=== PATIENT | female | born 1980 | race Caucasian/White ===

== ENCOUNTER 2016-10-30 21:45 | Emergency (ER) | payer MEDICAID ==
[2016-10-30 21:56] VITALS: BP 128/79
[2016-10-30] MEDS ORDERED: Lidocaine 1% 50 ML MDV INJECT ONE (22:00)
[2016-10-30] MEDS ORDERED: Acetaminophen/oxyCODONE 325-5 MG Tab PO ONE (22:05)
[2016-10-30] MEDS ORDERED: Sulfamethoxazole/Trimethoprim 800-160 MG Tab PO ONE (22:05)
[2016-10-30] MEDS ORDERED: cefTRIAXone 1 GM Vial IM ONE (22:05)
[2016-10-30] MEDS ORDERED: Acetaminophen/oxyCODONE 325-5 MG Tab ONE (22:13)
--- NOTE | 2016-10-30 22:13 | EDM.PDOC ---
ED HPI GENERAL MEDICAL PROBLEM - General Chief Complaint: General Stated Complaint: boil tiffany L breast Time Seen by Provider: 10/30/16 22:05 Source of Information: Reports: Patient History Limitations: Reports: No limitations - History of Present Illness INITIAL COMMENTS - FREE TEXT/NARRATIVE: PT STATES SHE DEVELOPED REDNESS AND PIMPLE ON INFERIOR LEFT BREAST 5 DAYS AGO. HAS BEEN SQUEEZING IT AND NOW LARGER AND MORE PAINFUL. DENIES FEVER, NIPPLE DISCHARGE, PAIN IN AXILLA, N/V, OR TRAUMA. Onset: gradual Onset Date: 10/25/16 Duration: Day(s): Location: Reports: chest Quality: Reports: Burning, Throbbing Severity: moderate Improves with: Reports: None Worsens with: Reports: None Associated Symptoms: Reports: no other symptoms - Related Data Allergies Allergy/AdvReac Type Severity Reaction Status Date / Time sun Allergy Rash Uncoded 10/30/16 21:48 tatoe ink Allergy Redness Uncoded 10/30/16 21:48 Home Meds: Home Meds Clobetasol [Clobetasol 0.05%] 1 applic TOP ASDIRECTED 10/30/16 [History] Nitroglycerin [Nitrostat] 0.4 mg SL Q5M PRN 10/30/16 [History] Past Medical History Respiratory History: Reports: None Musculoskeletal History: Reports: Other (see below) Other Musculoskeletal History: sholulder pain - hx of same for "years" Dermatologic History: Reports: Other (see below) Other Dermatologic History: hx of boils - on antibiotic for same now - Infectious Disease History Infectious Disease History: Reports: MRSA - Past Surgical History GI Surgical History: Reports: Hernia repair/other Female Surgical History: Reports: Breast reduction, section Social & Family History - Tobacco Use Smoking Status *Q: Current Every Day Smoker Years of Tobacco use: 20 Packs/Tins Daily: 1 Second Hand Smoke Exposure: No - Caffeine Use Caffeine Use: Reports: Coffee, Soda - Recreational Drug Use Recreational Drug Use: No ED ROS GENERAL - Review of Systems Review Of Systems: ROS reveals no pertinent complaints other than HPI. Constitutional: Reports: no symptoms HEENT: Reports: No symptoms Respiratory: Reports: No Symptoms Cardiovascular: Reports: No symptoms Endocrine: Reports: no symptoms GI/Abdominal: Reports: No symptoms : Reports: no symptoms Musculoskeletal: Reports: no symptoms Skin: Reports: no symptoms, erythema (ON LEFT BREAST) Neurological: Reports: No Symptoms Psychiatric: Reports: No symptoms Hematologic/Lymphatic: Reports: no symptoms Immunologic: Reports: no symptoms ED EXAM, GENERAL - Physical Exam Exam: See Below Exam Limited By: No limitations General Appearance: alert, WD/WN, mild distress Throat/Mouth: Normal inspection, Normal oropharynx, No airway compromise Neck: normal inspection. No: lymphadenopathy (L), lymphadenopathy (R) Respiratory/Chest: no respiratory distress, lungs clear, normal breath sounds Cardiovascular: regular rate, rhythm, no murmur Extremities: normal inspection Neurological: alert, oriented, normal cognition Psychiatric: normal affect, normal mood Skin Exam: Warm, Dry, Intact, Erythema (LEFT INFERIOR BREAST ABSCESS FORMATION) Lymphatic: no adenopathy (OF AXILLA) Course - Vital Signs Last Recorded V/S: Last Vital Signs Temp 98 F 10/30/16 21:52 Pulse 107 H 10/30/16 21:52 Resp 18 10/30/16 21:52 BP 128/79 10/30/16 21:52 Pulse Ox 97 10/30/16 21:52 - Orders/Labs/Meds Orders: Active Orders 24 hr Category Date Time Status Acetaminophen/oxyCODONE [Percocet 325-5 MG] Med 10/30/16 22:05 Once 1 tab PO ONETIME ONE Sulfamethoxazole/Trimethoprim [Septra DS] Med 10/30/16 22:05 Once 1 tab PO ONETIME ONE cefTRIAXone [Rocephin] Med 10/30/16 22:05 Once 1 gm IM ONETIME ONE - Re-Assessments/Exams Free Text/Narrative Re-Assessment/Exam: 10/30/16 22:13 PT AFEBRILE, NONTOXIC APPEARING, VSS, ROCEPHIN AND BACTRIM GIVEN. WILL F/U WITH PCP IN 2 DAYS FOR RECHECK Departure - Departure Time of Disposition: 22:14 Disposition: Home, Self-Care 01 Condition: good Clinical Impression: Abscess, Cellulitis of breast Instructions: Abscess, Cellulitis, Adult, [id number] Forms: ED Department Discharge Additional Instructions: FOLLOW UP AT [facility] IN 2 DAYS. RETURN TO ER SOONER IF SYMPTOMS CONTINUE - My Orders Last 24 Hours: My Active Orders 10/30/16 22:05 Acetaminophen/oxyCODONE [Percocet 325-5 MG] 1 tab PO ONETIME ONE Sulfamethoxazole/Trimethoprim [Septra DS] 1 tab PO ONETIME ONE cefTRIAXone [Rocephin] 1 gm IM ONETIME ONE - Assessment/Plan Last 24 Hours: My Active Orders 10/30/16 22:05 Acetaminophen/oxyCODONE [Percocet 325-5 MG] 1 tab PO ONETIME ONE Sulfamethoxazole/Trimethoprim [Septra DS] 1 tab PO ONETIME ONE cefTRIAXone [Rocephin] 1 gm IM ONETIME ONE Assessment:: ABSCESS Plan: F/U WITH PCP IN 2 DAYS
[2016-10-30] MEDS ORDERED: Lidocaine 1% 20 ML MDV ONE (22:17)
== END 2016-10-30 22:44 | disposition home or self-care (01) ==
LOC: KA.ED 21:45
DX: N61.1 Abscess of the breast and nipple (principal); F17.210 Nicotine dependence, cigarettes, uncomplicated; Z91.09 Other allergy status, other than to drugs and biological substances; Z98.890 Other specified postprocedural states
CPT/HCPCS: 96372; 99282; A9270; J0696

== ENCOUNTER 2020-04-07 00:14 | Emergency (ER) | payer BC, OTHER ==
[2020-04-07 00:29] VITALS: BP 114/71; PULSE 84
--- NOTE | 2020-04-07 00:47 | EDM.PDOC ---
ED HPI GENERAL MEDICAL PROBLEM - General Chief Complaint: General Stated Complaint: URI SYMPTOMS Time Seen by Provider: 04/07/20 00:30 Source of Information: Reports: Patient History Limitations: Reports: No Limitations - History of Present Illness INITIAL COMMENTS - FREE TEXT/NARRATIVE: 40 YO WF PRESENTS TO ER COMPLAINING OF 2 DAYS OF NASAL CONGESTION WITH NONPRODUCTIVE COUGH. PT DENIES FEVER/CHILLS, NO SHORTNESS OF BREATH OR CHEST PAIN. PT DENIES SORE THROAT, N/V/D OR ABDOMINAL PAIN. PT REPORTS SHE WORKS IN A [employer] UNIT AT WORK AND BECAME SYMPTOMATIC 2 DAYS AGO. PT REPORTS SHE WAS TO BE TESTED AT WORK THIS AM BUT HER INSISTED SHE COME TO ER [facility] FOR EVALUATION AND TREATMENT. Duration: Day(s): (2) Location: Reports: Generalized Quality: Reports: Ache Severity: Mild Improves with: Reports: None Worsens with: Reports: None Associated Symptoms: Reports: Cough, Fever/Chills. Denies: Chest Pain, cough w sputum, Headaches, Nausea/Vomiting, Rash, Shortness of Breath, Weakness - Related Data Allergies Allergy/AdvReac Type Severity Reaction Status Date / Time No Known Drug Allergies Allergy Cannot Verified 04/07/20 00:18 Remember ED ROS GENERAL - Review of Systems Review Of Systems: See Below Constitutional: Reports: Fever, Chills, Malaise HEENT: Reports: Rhinitis Respiratory: Reports: Cough Cardiovascular: Reports: No Symptoms Endocrine: Reports: No Symptoms GI/Abdominal: Reports: No Symptoms : Reports: No Symptoms Musculoskeletal: Reports: No Symptoms Skin: Reports: No Symptoms Neurological: Reports: No Symptoms Psychiatric: Reports: No Symptoms Hematologic/Lymphatic: Reports: No Symptoms Immunologic: Reports: No Symptoms ED EXAM, GENERAL - Physical Exam Exam: See Below Exam Limited By: No Limitations General Appearance: Alert, WD/WN, No Apparent Distress Nose: Clear Rhinorrhea Throat/Mouth: Normal Inspection, Normal Lips, Normal Teeth, Normal Gums, Normal Oropharynx, Normal Voice, No Airway Compromise Head: Atraumatic, Normocephalic Neck: Normal Inspection, Supple, Non-Tender, Full Range of Motion Respiratory/Chest: No Respiratory Distress, Lungs Clear, Normal Breath Sounds, No Accessory Muscle Use, Chest Non-Tender Cardiovascular: Normal Peripheral Pulses, Regular Rate, Rhythm, No Edema, No Gallop, No JVD, No Murmur, No Rub GI/Abdominal: Normal Bowel Sounds, Soft, Non-Tender, No Organomegaly, No Distention, No Abnormal Bruit, No Mass Back Exam: Normal Inspection, Full Range of Motion, NT Extremities: Normal Inspection, Normal Range of Motion, Non-Tender, Normal Capillary Refill, No Pedal Edema Neurological: Alert, Oriented, CN II-XII Intact, Normal Cognition, Normal Gait, Normal Reflexes, No Motor/Sensory Deficits Psychiatric: Normal Affect, Normal Mood Skin Exam: Warm, Dry, Intact, Normal Color, No Rash Lymphatic: No Adenopathy Course - Vital Signs Last Recorded V/S: Last Vital Signs Temp 36.0 C L 04/07/20 00:25 Pulse 84 04/07/20 00:25 Resp 24 H 04/07/20 00:25 BP 114/71 04/07/20 00:25 Pulse Ox 100 04/07/20 00:25 - Orders/Labs/Meds Orders: Active Orders 24 hr Category Date Time Status CORONAVIRUS COVID-19 JOE [MOLEC] Routine Lab 04/07/20 00:45 Ordered Departure - Departure Time of Disposition: 01:00 Disposition: Home, Self-Care 01 Condition: Good Clinical Impression: Acute viral syndrome - Discharge Information Instructions: Viral Respiratory Infection, [id number] Referrals: Marleen Moore, APPARAT[employer] LINEMAN [Primary Care Provider] - Forms: ED Department Discharge Additional Instructions: 1. DISCHARGE HOME 2. MOTRIN/TYLENOL FOR FEVER AND BODY ACHES 3. ZINC LOZENGES 4. ZYRTEC 10MG DAILY FOR COUGH/CONGESTION 5. FOLLOW UP WITH PCP FOR FURTHER EVALUATION AND TREATMENT 6. QUARANTINE UNTIL COVID TEST RESULTS ARE RELEASED 7. RETURN TO ER FOR WORSENING SYMPTOMS Sepsis Event Note (ED) - Evaluation Sepsis Screening Result: No Definite Risk - Focused Exam Vital Signs: Vital Signs Temp Pulse Resp BP Pulse Ox 04/07/20 00:25 36.0 C L 84 24 H 114/71 100 - My Orders Last 24 Hours: My Active Orders 04/07/20 00:45 CORONAVIRUS COVID-19 JOE [MOLEC] Routine - Assessment/Plan Last 24 Hours: My Active Orders 04/07/20 00:45 CORONAVIRUS COVID-19 JOE [MOLEC] Routine Assessment:: 1. ACUTE VIRAL ILLNESS Plan: 1. DISCHARGE HOME 2. MOTRIN/TYLENOL FOR FEVER AND BODY ACHES 3. ZINC LOZENGES 4. ZYRTEC 10MG DAILY FOR COUGH/CONGESTION 5. FOLLOW UP WITH PCP FOR FURTHER EVALUATION AND TREATMENT 6. QUARANTINE UNTIL COVID TEST RESULTS ARE RELEASED 7. RETURN TO ER FOR WORSENING SYMPTOMS
== END 2020-04-07 01:20 | disposition home or self-care (01) ==
LOC: MERGE 00:14 → KA.ED 00:14
DX: B34.9 Viral infection, unspecified (principal); Z20.828 Contact with and (suspected) exposure to other viral communicable diseases
CPT/HCPCS: 99282; 99283; U0002

== ENCOUNTER 2020-10-15 17:12 | Emergency (ER) | payer OTHER ==
--- NOTE | 2020-10-15 17:16 | EDM.PDOC ---
ED HPI GENERAL MEDICAL PROBLEM - General Chief Complaint: Trauma Stated Complaint: TRAUMA--FALL Time Seen by Provider: 10/15/20 17:12 Source of Information: Reports: Patient, Family - History of Present Illness INITIAL COMMENTS - FREE TEXT/NARRATIVE: Nupur, 40-year-old female, presents per pedis to the emergency department on a referral from Jatinder Pritchard provider in [place]. Yesterday, 14 October 2020, while at work, Nupur fell backwards striking her head.Coworker states there was a short period of loss of consciousness. She finished working her shift and was home by roughly 3:00 with mild headache. She has had sleepiness/drowsiness and not her usual self since then. This morning her had to awaken her x3 but she was able to get up and go to work and complete her entire shift. She has had some associated aches and pains to the musculature of the arms and legs, her back, neck in the paraspinal muscles, as well as her head. She has had intermittent headache. As well as intermittent periods of drowsiness. She had a 430 appointment at the [facility] this afternoon with Joan and was found to be in need of further evaluation and advised to seek emergency services here at the [facility] in [place]. 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: Musculoskeletal History: Reports: Other (See Below) Other Musculoskeletal History: Lupus Endocrine/Metabolic History: Reports: Obesity/BMI 30+ Dermatologic History: Reports: Other (See Below) Other Dermatologic History: hx of boils - on antibiotic for same now - Infectious Disease History Infectious Disease History: Reports: MRSA - Past Surgical History GI Surgical History: Reports: Hernia, Abdominal, Hernia Repair/Other Female Surgical History: Reports: Breast Reduction, Section, Hysterectomy Social & Family History - Family History Family Medical History: No Pertinent Family History - Caffeine Use Caffeine Use: Reports: Coffee, Soda ED ROS GENERAL - Review of Systems Review Of Systems: Comprehensive ROS is negative, except as noted in HPI. ED EXAM, GENERAL - Physical Exam Exam: See Below Free Text/Narrative:: Entire team was present and waiting for their arrival by private vehicle. Alert, oriented, with headache. Her demeanor is somewhat flat as I have met Nupur in the past. HEENT shows mild swelling in the posterior occipital region with tenderness. There is tenderness in the paraspinal muscles of the neck. Pupils are equal and right is slightly slower to respond. Auditory canals are free of any lesions or debris, negative for hemotympanum. Oral mucosa is pink and moist. All piercings are removed by herself from the ears nose and lips prior to the scan. Neck is no deformity other than mild tenderness in the musculature as well as into the shoulder margins. Thorax is clear throughout with no wheezes nor crackles. Cardiac is S1 is 2 I do not appreciate any murmur. Visualization of the shoulders posterior thorax anterior thorax and abdomen as well as flank are negative for any bruising at this time. There are some tattoos in place with no other integument irritation. She is ambulatory with no distress in her presentation to the department or ambulating for the CAT scan and back. When reassessed upon return breath sounds remain symmetrical and clear. Her pupils are more equal to response at this time. There is mild photophobia. She has a mild headache continuing rating 3. Course - Orders/Labs/Meds Orders: Active Orders 24 hr Category Date Time Status Head wo Cont [CT] Stat Exams 10/15/20 17:14 Ordered CBC WITH AUTO DIFF [HEME] Urgent Lab 10/15/20 17:14 Ordered COMPREHENSIVE METABOLIC PN,CMP [CHEM] Stat Lab 10/15/20 17:14 Ordered - Re-Assessments/Exams Free Text/Narrative Re-Assessment/Exam: 10/15/20 17:59 Pain free at time for discharge. No complaints visiting appropriately with no conversation deficit. 10/15/20 18:08 Pupils remain equal, and equally responsive. Departure - Departure Time of Disposition: 17:56 Disposition: Home, Self-Care 01 Condition: Good Clinical Impression: Fall against object, Work related injury, Concussion syndrome, Headache, Cerebellar tonsillar ectopia, Generalized muscle ache - Discharge Information *PRESCRIPTION DRUG MONITORING PROGRAM REVIEWED*: Not Applicable *COPY OF PRESCRIPTION DRUG MONITORING REPORT IN PATIENT SAHIL: Not Applicable Instructions: Post-Concussion Syndrome, Musculoskeletal Pain Referrals: Marleen Moore NP [Primary Care Provider] - Krystal Monson NP [Nurse Practitioner] - Forms: ED Department Discharge, ED Return to Work/School Form Additional Instructions: You most likely have a concussion syndrome. You need to go home and rest in a quiet, cool, dark environment. You may take Tylenol and ibuprofen for your aches and pains as well as headache, but no further ibuprofen until tomorrow morning as you were given a Toradol injection here in the emergency department. You need to avoid bright lights, loud noises, smart phones, and computers until at least 24 to 36 hours after your headache is completely resolved and you are feeling back to normal. Concussions are made worse by early return to activity before your brain has com pletely rested. No work until you are completely headache free for 24 hours without the use of any medications. At that time you should seek clinic services for reevaluation and a return to work/release of injury to return to work. Continue all of your regular prescribed medications as previously ordered. Make sure you maintain good hydration. Eat a well-balanced diet. When you are there for your recheck you may discuss the cerebral tonsillar ectopia that we were talking about in the clinic emergency department. Since you have not experienced chronic headaches on a lifelong basis it is very unlikely that this needs to be addressed. Work slip will be provided for no work until after your evaluation on 20 October at the soonest. Contact your clinic if you have any other concerns or need reevaluation sooner, or present to the emergency department closest to your location if severe symptoms should develop. - Problem List & Annotations (1) Fall against object SNOMED Code(s): 0385862 Code(s): W18.00XA - STRIKING AGAINST UNSP OBJECT W SUBSEQUENT FALL, INIT ENCNTR Status: Acute Priority: High Current Visit: Yes (2) Work related injury SNOMED Code(s): 23136391 Code(s): Y99.0 - CIVILIAN ACTIVITY DONE FOR INCOME OR PAY Status: Acute Priority: High Current Visit: Yes (3) Concussion syndrome SNOMED Code(s): 09435273 Code(s): F07.81 - POSTCONCUSSIONAL SYNDROME Status: Acute Priority: High Current Visit: Yes (4) Headache SNOMED Code(s): 39719017 Code(s): R51.9 - HEADACHE, UNSPECIFIED Status: Acute Priority: High Current Visit: Yes Qualifiers: Headache type: unspecified Headache chronicity pattern: acute headache Intractability: not intractable Qualified Code(s): R51.9 - Headache, unspecified (5) Generalized muscle ache SNOMED Code(s): 34298435 Code(s): M79.10 - MYALGIA, UNSPECIFIED SITE Status: Acute Priority: High Current Visit: Yes (6) Cerebellar tonsillar ectopia SNOMED Code(s): 855765990 Code(s): Q04.8 - OTHER SPECIFIED CONGENITAL MALFORMATIONS OF BRAIN Status: Chronic Priority: Medium Current Visit: Yes - Problem List Review Problem List Initiated/Reviewed/Updated: Yes - My Orders Last 24 Hours: My Active Orders 10/15/20 17:14 Head wo Cont [CT] Stat CBC WITH AUTO DIFF [HEME] Urgent COMPREHENSIVE METABOLIC PN,CMP [CHEM] Stat - Assessment/Plan Last 24 Hours: My Active Orders 10/15/20 17:14 Head wo Cont [CT] Stat CBC WITH AUTO DIFF [HEME] Urgent COMPREHENSIVE METABOLIC PN,CMP [CHEM] Stat Plan: You most likely have a concussion syndrome. You need to go home and rest in a quiet, cool, dark environment. You may take Tylenol and ibuprofen for your aches and pains as well as headache, but no further ibuprofen until tomorrow morning as you were given a Toradol injection here in the emergency department. You need to avoid bright lights, loud noises, smart phones, and computers until at least 24 to 36 hours after your headache is completely resolved and you are feeling back to normal. Concussions are made worse by early return to activity before your brain has completely rested. No work until you are completely headache free for 24 hours without the use of any medications. At that time you should seek clinic services for reevaluation and a return to work/release of injury to return to work. Continue all of your regular prescribed medications as previously ordered. Make sure you maintain good hydration. Eat a well-balanced diet. When you are there for your recheck you may discuss the cerebral tonsillar ectopia that we were talking about in the clinic emergency department. Since you have not experienced chronic headaches on a lifelong basis it is very unlikely that this needs to be addressed. Work slip will be provided for no work until after your evaluation on 20 October at the soonest. Contact your clinic if you have any other concerns or need reevaluation sooner, or present to the emergency department closest to your location if severe symptoms should develop.
[2020-10-15] MEDS: Ketorolac 60 MG/2 ML SDV IM ONE (17:36)
--- NOTE | 2020-10-15 17:40 | CT ---
[id number] CT/CT Head WO IV EXAM: NONCONTRAST HEAD CT INDICATION: FALL WITH CHANGE IN SENSORIUM; FALL 30 HOURS PRIOR. COMPARISON: None. DISCUSSION: The ventricles and sulci are normal in size and configuration. The durant and white matter are normal in attenuation. There is at least mild cerebellar tonsillar ectopia. No acute hemorrhage or extra-axial fluid collection. No acute territorial infarct is identified. Mild to moderate bilateral ethmoid sinus mucosal thickening. IMPRESSION: 1. No evidence of acute intracranial trauma. Tremaine Marquez MD 10/15/20 [id number] Thank you for allowing us to participate in the care of your patient.
[2020-10-15 17:50] LABS: ANION GAP 16.7 mmol/L (5-15); CHLORIDE,CL 106 mmol/L (98-107); SODIUM,NA 141 mmol/L (136-145)
[2020-10-15 17:51] VITALS: BP 115/52; PULSE 98
== END 2020-10-15 18:15 | disposition home or self-care (01) ==
LOC: KA.ED 17:12
DX: F07.81 Postconcussional syndrome (principal); Q04.8 Other specified congenital malformations of brain; E66.9 Obesity, unspecified; Z68.41 Body mass index [BMI] 40.0-44.9, adult; Z91.048 Other nonmedicinal substance allergy status
CPT/HCPCS: 36415; 70450; 80053; 85025; 96372; 99284; 99284-25; J1885

== ENCOUNTER 2021-09-16 15:38 | Emergency (ER) | payer BC, OTHER ==
[2021-09-16 16:54] VITALS: BP 108/65; PULSE 89
== END 2021-09-16 17:00 | disposition critical access hospital (66) ==
LOC: KA.ED 15:38
DX: S83.91XA Sprain of unspecified site of right knee, initial encounter (principal); E66.9 Obesity, unspecified; Z68.41 Body mass index [BMI] 40.0-44.9, adult; Z88.8 Allergy status to other drugs, medicaments and biological substances; W22.09XA Striking against other stationary object, initial encounter
CPT/HCPCS: 73562-RT; 99283; 99283-25

== ENCOUNTER 2023-01-31 10:29 | Emergency (ER) | payer BC, OTHER ==
[2023-01-31 10:56] VITALS: BP 128/75; PULSE 82
== END 2023-01-31 12:00 | disposition home or self-care (01) ==
LOC: KA.ED 10:29
DX: M25.511 Pain in right shoulder (principal); J45.909 Unspecified asthma, uncomplicated; E66.9 Obesity, unspecified; Z68.41 Body mass index [BMI] 40.0-44.9, adult; Z79.899 Other long term (current) drug therapy; Z91.048 Other nonmedicinal substance allergy status; W18.30XA Fall on same level, unspecified, initial encounter
CPT/HCPCS: 73030-RT; 73090-RT; 99283